=== PATIENT | female | born 1990 | race Two or more races ===

== ENCOUNTER 2016-09-16 01:19 | Emergency (ER) | payer OTHER ==
--- NOTE | ~2016-09-16 | CT4 ---
[facility] RADIOLOGY TEXT RESULTS PATIENT: GAUDENCIO MCGRAW LOCATION: SED : [birth year] UNIT #: [id number] AGE: [address]: Nick Nguyen MD SEX: F ORDER DR: [id number] [place] [id number] E MR#: [id number] Acc #: [id number] NAME: GAUDENCIO MCGRAW : 1990 SEX: F STUDY DATE/TIME: 09/16/2016 1:43 UNIT: SED ROOM: STUDY DESCRIPTION: CT Abd and Pelv Wo Cont Attending Physician: Nick Nguyen M.D. Ordering Physician: Nick Nguyen M.D. Primary Care Physician: No Primary Care Physician MEDICAL IMAGING REPORT This report is preliminary unless electronic signature is present. EXAM CT abdomen and pelvis, noncontrast, kidney stone protocol, 09/16/2016 HISTORY 26-year-old female in the ED complaining of right flank pain beginning on the evening of 09/14/2016. Some nausea. TECHNIQUE CT examination of the abdomen and pelvis without oral or IV contrast using kidney stone protocol. This CT exam was performed with one or more of the following radiation dose reduction techniques: automatic control, adjustment of mA and/or kV according to patient size, and iterative reconstruction. FINDINGS ABDOMEN FINDINGS: No radiopaque stone material is seen within the kidneys, ureters or bladder, there is no evidence of urinary obstruction. Liver, pancreas and spleen are within normal limits without contrast. Contracted gallbladder. No bile duct dilatation. Small bowel and colon are normal in caliber and appearance, as imaged. The appendix is normal. Moderately large volume stool throughout the colon. PELVIS FINDINGS: Uterus, ovaries, bladder and rectum are within normal limits. Small physiologic left ovary cyst. No inguinal hernia. IMPRESSION 1. Negative noncontrast CT examination of the abdomen and pelvis. 2. No visible nephrolithiasis or evidence of urinary obstruction. 3. The appendix is normal. [facility] RADIOLOGY TEXT RESULTS PATIENT: GAUDENCIO MCGRAW LOCATION: SED : 91 UNIT #: [id number] AGE: [address]: Nick Nguyen MD SEX: F ORDER DR: Dictated by... Srikanth Fernandez M.D. THIS IS AN ELECTRONICALLY VERIFIED REPORT Srikanth Fernandez M.D. at 09/17/2016 5:30 AM ELKEW/breanna TD: 09/17/2016 00:34 JOB #: [id number] MEDICAL IMAGING REPORT
[~2016-09-16 01:19] MED LIST: METRONIDAZOLE PO; NO MEDICATIONS; ZITHROMAX PO
[2016-09-16 01:27] LABS: URINE SOURCE CLEAN CATCH
[2016-09-16 01:30] LABS: URINE APPEARANCE CLEAR; URINE BILIRUBIN NEG (NEG); URINE BLOOD 2+ (NEG); URINE COLOR YELLOW; URINE GLUCOSE NEG (NORM); URINE KETONE NEG (NEG); URINE LEUKOCYTE ESTERASE 1+ (NEG); URINE NITRATE NEG (NEG); URINE PROTEIN NEG (NEG); URINE UROBILINOGEN 0.2 MG/DL (NORM)
[2016-09-16 01:32] LABS: BASOPHIL% 0.4 % (0-2.5); EOSINOPHIL# 0.2 X10e3 (0-0.7); EOSINOPHIL% 1.5 % (0.0-7.0); HEMATOCRIT 42.5 % (35.0-45.0); HEMOGLOBIN 13.7 gm/dL (12.0-16.0); LYMPHOCYTE# 2.7 X10e3 (1.0-3.5); LYMPHOCYTE% 27.4 % (17.0-45.0); MEAN CORPUSCULAR HEMOGLOBIN 29.4 PG (28-34); MEAN CORPUSCULAR HGB CONC 32.3 g/dL (30-36); MEAN PLATELET VOLUME 7.9 FL (6.5-11.5); MICRO INDICATED? YES; MONOCYTE# 0.7 X10e3 (0-1.0); NEUTROPHIL# 6.4 X10e3 (1.5-7.1); NEUTROPHIL% 63.7 % (40-75); PLATELET COUNT 238 X10e3 (140-420); RED BLOOD COUNT 4.67 X10e (3.90-5.30); RED CELL DISTRIBUTION WIDTH 14.1 % (11.0-15.5)
[2016-09-16 01:33] LABS: DIFF IND NO
[2016-09-16 01:36] LABS: CULTURE INDICATED? YES; URINE BACTERIA 1+ (NEG); URINE MUCUS PRESENT; URINE SQUAMOUS EPITHELIAL CELL MODERATE /[HPF]; URINE TRANSITIONAL EPI CELLS FEW /[HPF]
[2016-09-16 01:46] LABS: BLOOD UREA NITROGEN 11 mg/dL (9-23); BUN/CREATININE RATIO 12.22; CARBON DIOXIDE 28 mmol/L (22-31); CHLORIDE 101 mmol/L (100-111); CREATININE SERUM 0.9 mg/dL (0.6-1.4); GLOM FILT RATE Estimated ABOVE60 mL/min (>60); GLUCOSE FASTING 94 mg/dL (70-110); POTASSIUM 3.4 mmol/L (3.5-5.1); SODIUM 135 mmol/L (135-145)
== END 2016-09-16 02:26 | disposition home or self-care (01) ==
LOC: SED 01:19
PROVIDERS: Emergency Medicine
DX: N39.0 Urinary tract infection, site not specified (principal); F17.200 Nicotine dependence, unspecified, uncomplicated
CPT/HCPCS: 36415; 74176; 80048; 81003; 84703; 85025; 87086; 96374; 96375; 99284; J1885; J2405